=== PATIENT | female | born 1990 | race Caucasian/White ===

== ENCOUNTER 2017-02-08 22:23 | Emergency (ER) | payer OTHER ==
[2017-02-08 22:39] VITALS: BMI 27.2
--- NOTE | 2017-02-08 23:05 | PDOC ---
History of Present Illness - General History Source: Patient Exam Limitations: No Limitations - History of Present Illness Initial Comments: 02/09/17 00:36 Patient is a 26 year old female with no significant past medical history presenting to the ED with diffuse abdominal pain beginning 1 week prior to arrival. Patient states pain began while training this morning after a 1000 meter run, She reports the pain being sharp and reports feeling gassy. Patient states recurring abdominal pain being normal but says it feels more intense than previous episodes with increased intensity when walking. She reports having a fever 3 days prior but it was relieved with Vitamin C powder. She reported recurring nausea in the morning secondary to hunger. She states having irregular bowel movements recently, with her last bowel movement being yesterday. She reports having difficulty moving her bowels lately and feels constipated. Denies chest pain, SOB, Dizziness. Denies vomiting, diarrhea, chills. Denies any other symptoms. Allergies: No known allergies. Social history: Denies smoking, drugs, alcohol. Family: PMHx gastritis <Chris Chua - Last Filed: 02/09/17 00:34> <Tiffanie Robertson - Last Filed: 02/09/17 06:13> - General Chief Complaint: Pain Stated Complaint: STOMACH PAIN Time Seen by Provider: 02/08/17 23:05 Past History <Chris Chua - Last Filed: 02/09/17 00:34> - Immunization History Immunization Up to Date: Yes - Psycho/Social/Smoking Cessation Hx Anxiety: Yes Suicidal Ideation: No Smoking History: Never smoked Hx Alcohol Use: Yes ("occasion") Substance Use Type: None <Tiffanie Robertson - Last Filed: 02/09/17 06:13> - Past Medical History Allergies/Adverse Reactions: Allergies Allergy/AdvReac Type Severity Reaction Status Date / Time No Known Allergies Allergy Verified 02/08/17 22:36 Home Medications: Ambulatory Orders Polyethylene Glycol 3350 [Miralax (For Daily Use) -] 17 gm PO DAILY #1 bottle Review of Systems - Review of Systems Able to Perform ROS?: Yes Comments:: 02/09/17 00:37 GENERAL/CONSTITUTIONAL: No chills. No weakness. HEAD, EYES, EARS, NOSE AND THROAT: No change in vision. No ear pain or discharge. No sore throat. CARDIOVASCULAR: No chest pain or shortness of breath. RESPIRATORY: No cough, wheezing, or hemoptysis. GASTROINTESTINAL: + Abdominal pain, +Constipation. + Nausea. No vomiting, diarrhea. . GENITOURINARY: No dysuria, frequency, or change in urination. MUSCULOSKELETAL: No joint or muscle swelling or pain. No neck or back pain. SKIN: No rash NEUROLOGIC: No headache, vertigo, loss of consciousness, or change in strength/ sensation. ENDOCRINE: No increased thirst. No abnormal weight change. HEMATOLOGIC/LYMPHATIC: No anemia, easy bleeding, or history of blood clots. ALLERGIC/IMMUNOLOGIC: No hives or skin allergy. All Other Systems: Reviewed and Negative <Chris Chua - Last Filed: 02/09/17 00:34> *Physical Exam - Vital Signs Last Vital Signs Temp Pulse Resp BP Pulse Ox 98.5 F 96 H 18 145/102 100 02/08/17 22:37 02/08/17 22:37 02/08/17 22:37 02/08/17 22:37 02/08/17 22:37 - Physical Exam Comments: 02/09/17 00:37 GENERAL: Afebrile. Awake, alert, and fully oriented, in no acute distress HEAD: No signs of trauma EYES: PERRLA, EOMI, sclera anicteric, conjunctiva clear ENT: Auricles normal inspection, hearing grossly normal, nares patent, oropharynx clear without exudates. Moist mucosa NECK: Normal ROM, supple, no lymphadenopathy, JVD, or masses LUNGS: Breath sounds equal, clear to auscultation bilaterally. No wheezes, and no crackles HEART: Regular rate and rhythm, normal S1 and S2, no murmurs, rubs or gallops ABDOMEN: +Gassy, + Mild guarding. + Greatest point of tenderness at the LUQ. No right sided tenderness. +Suprapubic tenderness Soft, no rebound. No masses EXTREMITIES: Normal range of motion, no edema. No clubbing or cyanosis. No cords, erythema, or tenderness NEUROLOGICAL: Cranial nerves II through XII grossly intact. Normal speech, normal gait SKIN: Warm, Dry, normal turgor, no rashes or lesions noted. <Chris Chua - Last Filed: 02/09/17 00:34> - Vital Signs Last Vital Signs Temp Pulse Resp BP Pulse Ox 98.5 F 96 H 18 145/102 100 02/08/17 22:37 02/08/17 22:37 02/08/17 22:37 02/08/17 22:37 02/08/17 22:37 <Tiffanie Robertson - Last Filed: 02/09/17 06:13> ED Treatment Course - ADDITIONAL ORDERS Additional order review: Laboratory Results 02/08/17 02/08/17 23:10 23:10 Urine Color Ltyellow Urine Appearance Clear Urine pH 5.0 Urine Protein Negative Urine Glucose (UA) Negative Urine Ketones Trace H Urine Blood Negative Urine Nitrite Negative Urine Bilirubin Negative Urine Urobilinogen Negative Ur Leukocyte Esterase Trace Urine RBC 1 Urine WBC 1 Ur Epithelial Cells Rare Urine Bacteria Rare Hyaline Casts 1 Urine Mucus Rare Urine HCG, Qual Negative <Chris Chua - Last Filed: 02/09/17 00:34> Medical Decision Making - Medical Decision Making 02/09/17 04:22 Patient Name: SHABNAM MORAN THIS IS A PRELIMINARYREPORT FROM [facility] EXAM: CT abdomen and pelvis without contrast IMAGES: [id number] INDICATION: Rule out ileus or obstruction DATE OF SERVICE: 2017-02-09 03:31:56 COMPARISON: 12/31/14 FINDINGS: Lung bases are clear. The visualized cardiac chambers are normal size and configuration. Normal unenhanced liver, gallbladder, pancreas, spleen, adrenal glands and kidneys. The stomach and abdominal small and large bowel are normal. There is no aortic aneurysm. There is no significant retroperitoneal lymphadenopathy. The pelvic small and large bowel are normal. The appendix is normal The uterus and adnexal structures are normal. Urinary bladder is unremarkable. There is a small amount pelvic free fluid. No discrete pelvic lymphadenopathy is identified. IMPRESSION: No bowel pathology. Small amount of pelvic free fluid may be physiologic. No definite evidence of acute pathology. 02/09/17 06:10 Pt comes with abdominal pain. SHe eats one meal daily and she has been constipated and she started a seriously challenging workout regimen. Pt has no vomiting or diarrhea; she has no rebound, minimal guarding. Pt has gassy bowel sounds. RUQ pain. XR demonstrates normal bowel pattern, however, pt's pain continues and she is concerned. CT scan done and it too is normal. Pt will be discharged home with laxatives. SHe was advised to eat and drink more. <Tiffanie Robertson - Last Filed: 02/09/17 06:13> *DC/Admit/Observation/Transfer - Attestations Scribe Attestion: 02/09/17 00:37 Documentation prepared by Chris Chua, acting as medical geneticist for Tiffanie Robertson MD. <Chris Chua - Last Filed: 02/09/17 00:34> - Discharge Dispostion Admit: No <Tiffanie Robertson - Last Filed: 02/09/17 06:13> Diagnosis at time of Disposition: Constipation, Gas pain - Discharge Dispostion Disposition: HOME Condition at time of disposition: Improved - Prescriptions Prescriptions: Polyethylene Glycol 3350 [Miralax (For Daily Use) -] 17 gm PO DAILY #1 bottle - Patient Instructions Printed Discharge Instructions: DI for Constipation, DI for Dyspepsia
[2017-02-08 23:17] LABS: URINE APPEARANCE CLEAR; URINE BILIRUBIN NEGATIVE (NEGATIVE); URINE BLOOD NEGATIVE (NEGATIVE); URINE COLOR LTYELLOW; URINE GLUCOSE (UA) NEGATIVE (NEGATIVE); URINE KETONE TRACE (NEGATIVE); URINE LEUK ESTERASE TRACE (NEGATIVE); URINE NITRITE NEGATIVE (NEGATIVE); URINE PROTEIN NEGATIVE (NEGATIVE); URINE UROBILINOGEN NEGATIVE mg/dL (0.2-1.0)
[2017-02-08 23:21] LABS: URINE BACTERIA RARE /hpf (NONE SEEN); URINE HYALINE CAST 1 /lpf; URINE MUCUS RARE; URINE RBC 1 /hpf (0-3); URINE WBC 1 /hpf (3-5)
[2017-02-08] MEDS ORDERED: POLYETHYLENE GLYCOL 3350 119 GM BTL PO ONE (23:56)
[2017-02-08] MEDS ORDERED: MAG HYDROX/AL HYDROX/SIMETH 30 ML UNIT-DOSE CUP PO ONE (23:56)
[2017-02-09] MEDS ORDERED: MAG HYDROX/AL HYDROX/SIMETH 30 ML UNIT-DOSE CUP ONE (00:37)
[2017-02-09 04:31] VITALS: BP 116/94; PULSE 86; TEMP 98.1
== END 2017-02-09 04:33 | disposition home or self-care (01) ==
LOC: JER 22:23
DX: K59.09 Other constipation (principal); R14.1 Gas pain
CPT/HCPCS: 74020-TC; 74176-TC; 81003; 81015; 84703; 99284-25